=== PATIENT | female | born 1965 | race African-American/Black ===

== ENCOUNTER 2018-03-02 21:40 | Emergency (ER) | payer SELFPAY ==
[~2018-03-02] VITALS: Ht 162.6 cm; Wt 73.0 kg
[2018-03-02] MEDS ORDERED: IBUPROFEN 600MG TABLET PO ONE (22:15)
[2018-03-02 22:18] VITALS: BP 107/54
== END 2018-03-02 22:19 | disposition home or self-care (01) ==
LOC: ER 21:40
DX: J02.9 Acute pharyngitis, unspecified (principal); G40.909 Epilepsy, unspecified, not intractable, without status epilepticus; E11.9 Type 2 diabetes mellitus without complications; I10 Essential (primary) hypertension; Z85.9 Personal history of malignant neoplasm, unspecified; Z88.0 Allergy status to penicillin
CPT/HCPCS: 99283

== ENCOUNTER 2018-03-03 04:04 | Emergency (ER) | payer SELFPAY ==
[~2018-03-03] VITALS: Ht 170.2 cm; Wt 50.0 kg
[2018-03-03] MEDS ORDERED: IBUPROFEN 600MG TABLET PO STA (08:46)
[2018-03-03 09:00] VITALS: BP 118/65
== END 2018-03-03 10:22 | disposition home or self-care (01) ==
LOC: ER 04:04
DX: L03.811 Cellulitis of head [any part, except face] (principal); R07.0 Pain in throat; R10.13 Epigastric pain; G40.909 Epilepsy, unspecified, not intractable, without status epilepticus; J45.909 Unspecified asthma, uncomplicated; G43.909 Migraine, unspecified, not intractable, without status migrainosus; Z59.0 Homelessness; Z88.0 Allergy status to penicillin
CPT/HCPCS: 99283

== ENCOUNTER 2018-03-16 | Emergency (ER) | payer SELFPAY ==
[~2018-03-16] VITALS: Ht 170.2 cm; Wt 50.0 kg
[2018-03-16] MEDS ORDERED: MAGNESIUM/ALUMINUM HYDROXIDE/SIMETHICONE 30ML UDC PO STA (01:52)
[2018-03-16 02:34] LABS: BASOPHILS % 1.3 % (0.0-2.0); EOSINOPHILS % 10.3 % (0.0-5.0); HEMATOCRIT. 25.6 % (36.0-48.0); HEMOGLOBIN. 8.4 g/dL (12.0-16.0); LYMPHOCYTES % 40.2 % (20.0-50.0); MEAN CORPUSCULAR VOLUME 76.1 fL (81.0-99.0); MEAN PLATELET VOLUME 7.1 fl (7.4-10.4); MONOCYTES % 9.2 % (2.0-8.0); PLATELET 319 x1000/uL (130-400); RED BLOOD CELL COUNT 3.36 mill/uL (4.2-5.4); RED CELL DISTRIBUTION WIDTH 16.3 % (11.6-14.6)
[2018-03-16 02:37] LABS: CHLORIDE 106 mEq/L (98-107)
[2018-03-16 02:43] LABS: ETHANOL BLOOD < 10 mg/dL
[2018-03-16 04:50] VITALS: BP 104/58
== END 2018-03-16 04:52 | disposition home or self-care (01) ==
LOC: ER
DX: R10.84 Generalized abdominal pain (principal); D64.9 Anemia, unspecified; D57.1 Sickle-cell disease without crisis; F41.9 Anxiety disorder, unspecified; J45.909 Unspecified asthma, uncomplicated; G40.909 Epilepsy, unspecified, not intractable, without status epilepticus; G80.9 Cerebral palsy, unspecified; Z85.3 Personal history of malignant neoplasm of breast; Z85.79 Personal history of other malignant neoplasms of lymphoid, hematopoietic and related tissues; Z88.0 Allergy status to penicillin; Z98.890 Other specified postprocedural states
CPT/HCPCS: 36415; 80053; 83690; 85025; 99284; G0482

== ENCOUNTER 2018-03-20 22:44 | Emergency (ER) | payer SELFPAY ==
[~2018-03-20] VITALS: Ht 167.6 cm; Wt 63.5 kg
[2018-03-21] MEDS ORDERED: SODIUM CHLORIDE 0.9% 1,000 ML IV ONE (01:51)
[2018-03-21] MEDS ORDERED: ONDANSETRON HCL 4MG/2ML VIAL IV STA (01:51)
[2018-03-21] MEDS ORDERED: MORPHINE SULFATE 10 MG/ML CPJ IV ONE (02:00)
[2018-03-21 02:25] LABS: BASOPHILS % 1.3 % (0.0-2.0); EOSINOPHILS % 5.2 % (0.0-5.0); HEMATOCRIT. 26.4 % (36.0-48.0); HEMOGLOBIN. 8.5 g/dL (12.0-16.0); LYMPHOCYTES % 38.9 % (20.0-50.0); MEAN CORPUSCULAR HEMOGLOBIN 24.6 pg (28.0-32.0); MEAN CORPUSCULAR VOLUME 76.1 fL (81.0-99.0); MEAN PLATELET VOLUME 7.6 fl (7.4-10.4); MONOCYTES % 10.6 % (2.0-8.0); PLATELET 279 x1000/uL (130-400); RED BLOOD CELL COUNT 3.47 mill/uL (4.2-5.4); RED CELL DISTRIBUTION WIDTH 16.2 % (11.6-14.6)
[2018-03-21 02:32] LABS: CHLORIDE 105 mEq/L (98-107)
[2018-03-21 02:33] LABS: HCG SCREEN NEGATIVE
[2018-03-21 02:34] LABS: INR 1.1; PROTHROMBIN TIME 11.3 sec (9.4-11.6)
[2018-03-21 09:15] LABS: CLARITY URINE CLEAR (CLEAR); COLOR URINE YELLOW (YELLOW); KETONES URINE NEGATIVE (NEGATIVE); LEUKOCYTE ESTERASE URINE 1+ (NEGATIVE); NITRITE URINE NEGATIVE (NEGATIVE); OCCULT BLOOD URINE NEGATIVE (NEGATIVE); PROTEIN URINE NEGATIVE (NEGATIVE); SPECIFIC GRAVITY URINE 1.022 (1.005-1.030); UROBILINOGEN URINE 0.2 E.U./dL (0.2-1.0)
[2018-03-21 09:35] VITALS: BP 108/55
[2018-03-21 09:36] LABS: METHADONE URINE SCREEN NEGATIVE (NEGATIVE); OPIATES URINE SCREEN NEGATIVE (NEGATIVE)
[2018-03-21 09:37] LABS: *AMPHETAMINES SCREEN URINE NEGATIVE (NEGATIVE); *BARBITURATES SCREEN URINE NEGATIVE (NEGATIVE); *BENZODIAZEPINES SCREEN URINE NEGATIVE (NEGATIVE); *COCAINE SCREEN URINE NEGATIVE (NEGATIVE); CANNABINOID URINE SCREEN NEGATIVE (NEGATIVE); PHENCYCLIDINE URINE SCREEN NEGATIVE (NEGATIVE)
== END 2018-03-21 10:40 | disposition home or self-care (01) ==
LOC: ER 23:34
DX: R10.84 Generalized abdominal pain (principal); R50.9 Fever, unspecified; R19.7 Diarrhea, unspecified; J45.909 Unspecified asthma, uncomplicated; F41.9 Anxiety disorder, unspecified; F31.9 Bipolar disorder, unspecified; Z88.0 Allergy status to penicillin; Z88.8 Allergy status to other drugs, medicaments and biological substances
CPT/HCPCS: 36415; 71045; 80053; 80305; 81003; 83690; 84703; 85025; 85610; 99285; J2270; J2405; J7030; Z7610

== ENCOUNTER 2018-03-21 22:06 | Emergency (ER) | payer SELFPAY ==
[~2018-03-21] VITALS: Ht 170.2 cm; Wt 50.0 kg
[2018-03-21] MEDS: LIDOCAINE 5% PATCH TOP SCH (00:10)
[2018-03-21] MEDS ORDERED: KETOROLAC 60MG/2ML VIAL IM ONE (22:45)
[2018-03-22] MEDS: LIDOCAINE 5% PATCH TOP SCH (09:23)
[2018-03-22 17:20] VITALS: BP 108/62
== END 2018-03-22 19:44 | disposition home or self-care (01) ==
LOC: ER 22:15
DX: M54.9 Dorsalgia, unspecified (principal); G89.29 Other chronic pain; Z59.0 Homelessness; R41.0 Disorientation, unspecified; Z74.1 Need for assistance with personal care; G40.909 Epilepsy, unspecified, not intractable, without status epilepticus; E11.9 Type 2 diabetes mellitus without complications; G80.9 Cerebral palsy, unspecified; Z95.0 Presence of cardiac pacemaker; Z85.3 Personal history of malignant neoplasm of breast; Z88.0 Allergy status to penicillin; Z98.890 Other specified postprocedural states; Z88.8 Allergy status to other drugs, medicaments and biological substances
CPT/HCPCS: 93005; 99283

== ENCOUNTER 2018-03-22 21:41 | Emergency (ER) | payer SELFPAY ==
[~2018-03-22] VITALS: Ht 170.2 cm; Wt 50.0 kg
[2018-03-23 12:44] VITALS: BP 103/56
== END 2018-03-23 12:54 | disposition home or self-care (01) ==
LOC: ER 21:41
DX: R53.1 Weakness (principal); Z59.0 Homelessness; J45.909 Unspecified asthma, uncomplicated; Z85.3 Personal history of malignant neoplasm of breast; Z88.0 Allergy status to penicillin; Z95.0 Presence of cardiac pacemaker; Z87.891 Personal history of nicotine dependence
CPT/HCPCS: 99283

== ENCOUNTER 2018-03-23 20:59 | Emergency (ER) | payer SELFPAY ==
[~2018-03-23] VITALS: Ht 170.2 cm; Wt 50.0 kg
[2018-03-24 06:00] VITALS: BP 103/54
== END 2018-03-24 11:30 | disposition home or self-care (01) ==
LOC: ER 03-24 11:30
DX: F41.0 Panic disorder [episodic paroxysmal anxiety] (principal); Z59.0 Homelessness; Z87.891 Personal history of nicotine dependence; Z88.0 Allergy status to penicillin; Z88.8 Allergy status to other drugs, medicaments and biological substances
CPT/HCPCS: 99284